=== PATIENT | female | born 1950 | race Caucasian/White ===

== ENCOUNTER 2017-05-21 09:48 | Emergency (ER) | payer MEDICARE, OTHER ==
[~2017-05-21] VITALS: Ht 154.9 cm; Wt 60.7 kg
[~2017-05-21 09:48] MED LIST: AMIT25TA20 PO; CYCL1PAK PO; METO25CR PO; RANI150C PO; REQU2TAB3 PO; SIMV20 PO; TRAM50TA PO; Z.0.COMMODE-3:1; Z.0.WALKERFRONT
[2017-05-21 09:57] VITALS: BP 175/89; PULSE 110; RESP 16; TEMP 98.4; O2SAT 94
[2017-05-21] MEDS ORDERED: SIMV20TA PO (10:34)
[2017-05-21] MEDS ORDERED: TRAM50 PO (10:34)
[2017-05-21] MEDS ORDERED: AMIT10TA6 PO (10:34)
[2017-05-21] MEDS ORDERED: MELO15TA20 PO (10:34)
[2017-05-21] MEDS ORDERED: REQU3TAB PO (10:34)
--- NOTE | 2017-05-21 11:12 | RADRPT ---
EXAM DATE/TIME: 05/21/2017 10:53 [place] COMPARISON: CT BRAIN W/O CONTRAST, May 28, 2011, 15:00. INDICATIONS : Trauma. Cabinet fell on her head. Head laceration. RADIATION DOSE: 53.75 CTDIvol (mGy) MEDICAL HISTORY : Cardiovascular disease. SURGICAL HISTORY : Tubal ligation. Hysterectomy. ENCOUNTER: Initial ACUITY: 1 day PAIN SCALE: 6/10 LOCATION: cranial TECHNIQUE: Multiple contiguous axial images were obtained of the head. Using automated exposure control and adj ustment of the mA and/or kV according to patient size, radiation dose was kept as low as reasonably a chievable to obtain optimal diagnostic quality images. DICOM format image data is available electro nically for review and comparison. FINDINGS: There is symmetric bilateral white matter hypodensity, mainly in the frontal regions which appears fa irly stable. No evidence of intracranial hemorrhage or mass. There is nothing to suggest acute infarc tion. Ventricles are stable symmetric and normal. Extracranial structures are benign and intact. CONCLUSION: Stable brain appearance. Zohaib Rosado MD on May 21, 2017 at 11:07 Board Certified Radiologist. This report was verified electronically.
--- NOTE | 2017-05-21 11:57 | PD ---
HPI Chief Complaint: Head Injury Time Seen by Provider: 10:36 Travel History International Travel<30 days: No Contact w/Intl Traveler<30days: No Traveled to known affect area: No History of Present Illness HPI This is a 15-year-old female who has a laceration to her scalp after a Cabinet Fell from the Wall Hitting Her in the Head. She Denies Loss of Consciousness. She Remained Standing during the Event. She Is Not Anticoagulated. She Denies Headache, Visual Changes, Neck Pain, Vomiting, Paresthesias or Weakness. She has aching pain at the site of the laceration which is nonradiating. Severity is moderate. Tetanus immunization is up-to-date. She denies any other injuries. PFSH Past Medical History Hx Anticoagulant Therapy: No Arthritis: Yes Autoimmune Disease: No Blood Disorders: No Anxiety: No Depression: Yes Heart Rhythm Problems: Yes (TACHYARRHYTHMIA) Cancer: Yes (SKIN RECENTLY) Cardiovascular Problems: Yes (RAPID HEART RATE) High Cholesterol: Yes Chemotherapy: No Chest Pain: No Congestive Heart Failure: No Cerebrovascular Accident: No Diabetes: No Diminished Hearing: No Endocrine: No Gastrointestinal Disorders: Yes (REFLUX) GERD: Yes Genitourinary: No Hepatitis: No Hiatal Hernia: No Hypertension: No Immune Disorder: No Implanted Vascular Access Dvce: Yes Medical other: Yes (RESTLESS LEGS) Musculoskeletal: Yes (scoliosis, BACK, ARTHRITIS) Neurologic: No Psychiatric: No Reproductive: Yes (HYSTERECTOMY ) Respiratory: No Immunizations Current: Yes Radiation Therapy: No Seizures: No Thyroid Disease: No Tetanus Vaccination: Unknown ?: Not Menopausal: Yes Past Surgical History Body Medical Devices: BILAT LENS Cardiac Surgery: No Eye Surgery: Yes (TARA. CATARACTS) Gynecologic Surgery: Yes (TUBAL LIG, HYSTERECTOMY) Hysterectomy: Yes Joint Replacement: Yes (BILATERAL HIP) Pacemaker: No Other Surgery: Yes (04/25/14 RIGHT TOTAL HIP) Family History Family Myocardial Infarction: Yes (MOTHER) Social History Alcohol Use: No Tobacco Use: No Substance Use: No Allergies-Medications (Allergen,Severity, Reaction): Coded Allergies: morphine (Unverified Allergy, Severe, Itching, 05/21/17) PATIENT STATES NOT ALLERGIC TO HYDROCODONE (OK TO GIVE PER 'S PA HENRRY RIVERO) Reported Meds & Prescriptions Reported Meds & Active Scripts Active Reported Simvastatin 20 Mg Tab 20 Mg PO DAILY Amitriptyline (Amitriptyline HCl) 10 Mg Tab 10 Mg PO HS Requip (Ropinirole) 3 Mg Tab 3 Mg PO HS Ultram (Tramadol HCl) 50 Mg Tab 50 Mg PO Q8H PRN Meloxicam 15 Mg Tab 15 Mg PO DAILY Review of Systems Except as stated in HPI: all other systems reviewed are Neg Physical Exam Narrative GENERAL: Alert well-appearing female in no distress. SKIN: Warm and dry. 1.5 centimeter laceration to scalp HEAD: Normocephalic. EYES: Pupils equal and round. No scleral icterus. No injection or drainage. EOMs intact. ENT: No nasal bleeding or discharge. Mucous membranes pink and moist. NECK: Trachea midline. No JVD. No cervical midline tenderness. CARDIOVASCULAR: Regular rate and rhythm. RESPIRATORY: No accessory muscle use. Clear to auscultation. Breath sounds equal bilaterally. GASTROINTESTINAL: Abdomen soft, non-tender, nondistended. Hepatic and splenic margins not palpable. MUSCULOSKELETAL: Extremities without clubbing, cyanosis, or edema. No obvious deformities. NEUROLOGICAL: Awake and alert. No obvious cranial nerve deficits. Motor grossly within normal limits. Five out of 5 muscle strength in the arms and legs. Normal speech. PSYCHIATRIC: Appropriate mood and affect; insight and judgment normal. Data Data Last Documented VS Vital Signs Date Time Temp Pulse Resp B/P (MAP) Pulse Ox O2 Delivery O2 Flow Rate FiO2 05/21/17 09:57 98.4 110 16 175/89 (117) [address] Brain W/O Iv Contrast(Rout) (05/21/17 ) [facility] Medical Decision Making Medical Screen Exam Complete: Yes Emergency Medical Condition: Yes Differential Diagnosis Laceration, scalp contusion, unlikely ICH Narrative Course 67-year-old female here with laceration to scalp after passing Fell off the wall hitting her in the head. There was no loss of consciousness. Patient reports only mild headache at the time. She has a normal neurologic exam. CT scan of the brain was normal. Laceration repair performed. Patient tolerated procedure well. Procedures Procedure Narrative LACERATION LOCATION: Scalp LENGTH: 1.5 cm NUMBER OF STITCHES/JOSE LUIS: One staple REPAIR: The area of the laceration was prepped with Betadine and sterilely draped. . The wound was copiously irrigated and explored without evidence of foreign body, tendon injury or neurovascular injury. The wound was closed using staple. This was a [single] layer repair. A sterile dressing was applied. The patient was advised to keep the dressing clean and dry. Patient tolerated the procedure well. Diagnosis Primary Impression: Scalp laceration Qualified Codes: S01.01XA - Laceration without foreign body of scalp, initial encounter Referrals: Primary Care Physician Additional Instructions: Avoid heavy lifting or strenuous activity. Take [id number] Tylenol as needed for pain. Follow-up with her primary doctor. Staple needs to be removed in 7-10 days. Return to emergency department if he developed severe headache, vomiting, confusion, numbness or weakness in extremities Disposition: 01 DISCHARGE HOME Condition: Stable Shakila Adams May 21, 2017 11:57
== END 2017-05-21 12:21 | disposition home or self-care (01) ==
LOC: PHED 09:48 → PHEFT 12:21
DX: S01.01XA Laceration without foreign body of scalp, initial encounter (principal); R51 Headache; E78.00 Pure hypercholesterolemia, unspecified; Z87.39 Personal history of other diseases of the musculoskeletal system and connective tissue; Z86.59 Personal history of other mental and behavioral disorders; Z86.79 Personal history of other diseases of the circulatory system; Z85.828 Personal history of other malignant neoplasm of skin; Z87.19 Personal history of other diseases of the digestive system; W20.8XXA Other cause of strike by thrown, projected or falling object, initial encounter
CPT/HCPCS: 12001; 70450